=== PATIENT | female | born 1975 | race African-American/Black ===

== ENCOUNTER 2019-05-11 13:47 | Emergency (ER) | payer MEDICAID ==
[~2019-05-11] VITALS: Ht 165.1 cm; Wt 131.1 kg
[2019-05-11 14:12] VITALS: BP 154/82
--- NOTE | 2019-05-11 15:27 | RAD ---
Three-view right knee study Clinical indications: Right knee pain. FINDINGS: No acute fracture or dislocation or lytic process is seen. There is degenerative spurring and mild joint space narrowing of the medial and lateral tibiofemoral joint compartments. Small right knee joint effusion is seen. IMPRESSION: No acute fracture. Mild primary degenerative osteoarthritis. Electronically signed by: Unruly Waters MD (05/11/2019 3:24 PM) [facility]
[2019-05-11] MEDS ORDERED: METH4TAB2 PO (15:48)
[2019-05-11] MEDS ORDERED: DICL50TA2 PO (15:48)
--- NOTE | 2019-05-11 15:48 | PHYS DOC ---
Past Medical History Past Medical History: No Pertinent History Past Surgical History: Tubal ligation Alcohol Use: Occasionally Drug Use: None Adult General Chief Complaint Chief Complaint: LOWER EXT PAIN HPI HPI Patient is a 43 year old female who presents to the ED today complaining of 10 out of 10 right knee pain radiating to the upper and lower aspect of the leg that began this morning, patient denies any known injury. Describes the pain as throbbing and intermittent worse on weight-bearing and certain movements. Denies anything specifically alleviating the pain. Review of Systems Review of Systems Constitutional: Denies fever or chills [] Musculoskeletal: Reports right knee pain Integument: Denies rash or skin lesions [] Neurologic: Denies headache, focal weakness or sensory changes [] All other systems were reviewed and found to be within normal limits, except as documented in this note. Allergies Allergies Allergies Coded Allergies Type Severity Reaction Last Updated Verified No Known Drug Allergies 05/11/19 No Physical Exam Physical Exam Constitutional: Well developed, well nourished, no acute distress, non-toxic appearance. [] Skin: Warm, dry, no erythema, no rash. [] Back: No tenderness, no CVA tenderness. [] Extremities: Right knee with no obvious deformity, full passive range of motion to the right knee. Negative Renaldo sign, negative for any sign, negative anterior-posterior drawer sign. +2 right pedal pulse. Neurologic: Alert and oriented X 3, normal motor function, normal sensory function, no focal deficits noted. [] Psychologic: Affect normal, judgement normal, mood normal. [] Current Patient Data Vital Signs Vital Signs Date Time Temp Pulse Resp B/P (MAP) Pulse Ox O2 Delivery O2 Flow Rate FiO2 05/11/19 14:12 98.2 77 16 154/82 (106) 98 Room Air 98.2 EKG EKG [] Radiology/Procedures Radiology/Procedures []PROCEDURE: KNEE RIGHT 3V Three-view right knee study Clinical indications: Right knee pain. FINDINGS: No acute fracture or dislocation or lytic process is seen. There is degenerative spurring and mild joint space narrowing of the medial and lateral tibiofemoral joint compartments. Small right knee joint effusion is seen. IMPRESSION: No acute fracture. Mild primary degenerative osteoarthritis. Electronically signed by: Ladi Waters MD (05/11/2019 3:24 PM) [facility] DICTATED and SIGNED BY: LADI WATERS MD DATE: 05/11/19 1524 Course & Med Decision Making Course & Med Decision Making Pertinent Labs and Imaging studies reviewed. (See chart for details) This is a 43-year-old female patient presenting to the ED today with right knee pain since this morning, no known injury. Right knee x-rays interpreted by radiologist were negative for any acute findings, noted for DJD. Discharged with Medrol Dosepak and diclofenac. Follow-up with orthopedic doctor in 1-2 weeks. Dragon Disclaimer Dragon Disclaimer This electronic medical record was generated, in whole or in part, using a voice recognition dictation system. Departure Departure Impression: Primary Impression: Right knee pain Additional Impression: Right knee DJD Disposition: HOME, SELF-CARE Condition: STABLE Referrals: NO PCP (PCP) ELVIN COTO MD follow up in 1-2 weeks Patient Instructions: Arthritis, Degenerative-Brief Additional Instructions: You were evaluated in the emergency room for right knee pain, your right knee x- rays were negative for any acute findings, you were noted to have arthritis in the right knee. Try to ice and elevate the extremity. Take the prescribed pain medication as ordered, please follow-up with the provided orthopedic doctor in 1-2 weeks. Scripts Diclofenac Potassium (DICLOFENAC POTASSIUM) 50 Mg Tablet 1 TAB PO BID, #30 TAB 0 Refills Prov: JUAN CONTI JOSE G 05/11/19 Methylprednisolone (MEDROL) 4 Mg Tab.ds.pk 1 PKG PO UD, #1 PKG Prov: JUAN CONTI [employer] 05/11/19 Problem Qualifiers Primary Impression: Right knee pain Chronicity: acute Qualified Codes: M25.561 - Pain in right knee Additional Impression: Right knee DJD Osteoarthritis type: primary Qualified Codes: M17.11 - Unilateral primary osteoarthritis, right knee JUAN CONTI [employer] May 11, 2019 15:48
== END 2019-05-11 16:13 | disposition home or self-care (01) ==
LOC: ER 13:47
DX: M17.11 Unilateral primary osteoarthritis, right knee (principal); Z98.51 Tubal ligation status
CPT/HCPCS: 73562; 99284

== ENCOUNTER 2019-05-12 16:11 | Emergency (ER) | payer MEDICAID ==
[~2019-05-12] VITALS: Ht 165.1 cm; Wt 131.1 kg
[~2019-05-12 16:11] MED LIST: DICL50TA2 PO; METH4TAB2 PO
[2019-05-12 16:37] VITALS: BP 154/82
[2019-05-12] MEDS ORDERED: KETOROLAC 60 MG/2 ML VIAL. IM ONE (16:45)
[2019-05-12] MEDS ORDERED: predniSONE 10 MG TABLET PO ONE (16:45)
--- NOTE | 2019-05-12 16:54 | PHYS DOC ---
Past Medical History Past Medical History: No Pertinent History Past Surgical History: Tubal ligation Alcohol Use: Occasionally Drug Use: None Adult General Chief Complaint Chief Complaint: LOWER EXT PAIN HPI HPI Patient is a 43 year old female who presents to the ED today complaining of ongoing right knee pain since yesterday, patient was seen in the ED yesterday by me, had negative x-rays but was noted for arthritis in the knee. Was discharged home with diclofenac and Medrol dosepak. She states she is here visiting from [place] and nobody is accepting her [place] Medicaid Hence she did not fill the prescriptions. Patient denies any new injuries. Review of Systems Review of Systems Constitutional: Denies fever or chills [] Musculoskeletal: Reports right knee pain Integument: Denies rash or skin lesions [] Neurologic: Denies headache, focal weakness or sensory changes [] All other systems were reviewed and found to be within normal limits, except as documented in this note. Current Medications Current Medications Current Medications Medications (Trade) Dose Ordered Sig/Linda Start Time Stop Time Status Last Admin Dose Admin Ketorolac Tromethamine (Toradol Im) 60 mg 1X ONCE 05/12/19 16:45 05/12/19 16:46 DC Prednisone (Prednisone) 50 mg 1X ONCE 05/12/19 16:45 05/12/19 16:46 DC Allergies Allergies Allergies Coded Allergies Type Severity Reaction Last Updated Verified No Known Drug Allergies 05/11/19 No Physical Exam Physical Exam Constitutional: Well developed, well nourished, no acute distress, non-toxic appearance. [] Skin: Warm, dry, no erythema, no rash. [] Back: No tenderness, no CVA tenderness. [] Extremities: Right knee with no obvious deformity, full range of motion. +2 right pedal pulse. Neurologic: Alert and oriented X 3, normal motor function, normal sensory function, no focal deficits noted. [] Psychologic: Affect normal, judgement normal, mood normal. [] Current Patient Data Vital Signs Vital Signs Date Time Temp Pulse Resp B/P (MAP) Pulse Ox O2 Delivery O2 Flow Rate FiO2 05/12/19 16:37 98.6 72 16 154/82 (106) 99 Room Air 98.6 EKG EKG [] Radiology/Procedures Radiology/Procedures [] Course & Med Decision Making Course & Med Decision Making Pertinent Labs and Imaging studies reviewed. (See chart for details) This is a 43-year-old female patient presenting to the ED today with right knee pain, patient was in the ED yesterday, had negative x-rays, was noted to have DJD of the right knee and discharged with Medrol Dosepak and diclofenac. She reports she is not able to fill the prescriptions because she has [place] Medicaid. She is requesting something for pain in the ED. We gave her prednisone and a shot of Toradol. Recommended follow-up with an orthopedic doctor and fill rx she got yesterday. Dragon Disclaimer Dragon Disclaimer This electronic medical record was generated, in whole or in part, using a voice recognition dictation system. Departure Departure Impression: Primary Impression: Right knee DJD Additional Impression: Right knee pain Disposition: 01 HOME, SELF-CARE Condition: STABLE Referrals: NO PCP (PCP) ELVIN COTO MD follow up in 1 week Patient Instructions: Arthritis, Degenerative-Brief Additional Instructions: Please consider filling the prescriptions you got yesterday Please consider following up with your primary care doctor in [place] or the orthopedic doctor we provided do with Please consider icing and elevating the affected knee Problem Qualifiers Primary Impression: Right knee DJD Osteoarthritis type: primary Qualified Codes: M17.11 - Unilateral primary osteoarthritis, right knee Additional Impression: Right knee pain Chronicity: acute Qualified Codes: M25.561 - Pain in right knee JUAN CONTI APRN May 12, 2019 16:54
== END 2019-05-12 16:59 | disposition home or self-care (01) ==
LOC: ER 16:11
DX: M17.11 Unilateral primary osteoarthritis, right knee (principal); Z98.51 Tubal ligation status
CPT/HCPCS: 96372; 99283; J1885; J7512